=== PATIENT | female | born 1955 | race African-American/Black ===

== ENCOUNTER 2016-12-31 18:52 | Emergency (ER) | payer SELFPAY ==
[~2016-12-31] VITALS: Ht 167.6 cm; Wt 122.4 kg
[2016-12-31 22:26] LABS: HEMATOCRIT 38.5 % (36.0-46.0); MCH 30.7 PG (29.0-34.0); MCHC 33.8 G/DL (30.0-36.0); MEAN PLAT.VOLUME 10.5 uM^3 (9.5-12.4); PLATELET COUNT 241 K/uL (156-360); RBC DIS.WIDTH-CV 13.8 % (11.8-14.6); RBC DIS.WIDTH-SD 46.8 % (39-53); RED BLOOD COUNT 4.23 M/uL (3.80-5.20); WHITE BLOOD COUNT 7.4 K/uL (4.1-10.2)
[2016-12-31 22:34] LABS: CHLORIDE 107 mEq/L (99-109); POTASSIUM 3.8 mEq/L (3.7-5.4); SODIUM 142 mEq/L (136-147)
[2016-12-31 22:36] LABS: GLUCOSE 83 mg/dL (70-99)
[2016-12-31 22:37] LABS: ANION GAP 7 MEQ/L (2-14)
[2016-12-31 22:40] LABS: GFR ESTIMATE (CALCULATED) > 59 mL/min/
[2016-12-31 22:41] LABS: UREA NITROGEN (BUN) 9 mg/dL (9-23)
[2016-12-31 22:47] LABS: TROP-I INTERPRETATION NEGATIVE; TROPONIN-I < 0.01 ng/mL (0.0-0.30)
[2016-12-31] MEDS ORDERED: HYDROCHLOROTHIA25 MG PO (22:52)
[2016-12-31 23:10] VITALS: BP 152/79
== END 2016-12-31 23:28 | disposition home or self-care (01) ==
LOC: EME 18:52
PROVIDERS: Emergency Medicine
DX: I10 Essential (primary) hypertension (principal); R51 Headache; E78.5 Hyperlipidemia, unspecified; F17.200 Nicotine dependence, unspecified, uncomplicated
CPT/HCPCS: 71010; 80048; 83880; 84484; 85027; 93005; 99281; 99285